=== PATIENT | female | born 1970 | race American Indian/Alaskan Native ===

== ENCOUNTER 2017-05-16 20:28 | Emergency (ER) | payer OTHER ==
[2017-05-16 20:37] VITALS: BP 117/83
[2017-05-16 20:48] LABS: Basophils % (Auto) 0.9 % (0.0-1.8); Mean Corpuscular HGB Conc 32 % (30-34); Mean Corpuscular Hemoglobin 29 pg (28-32); Mean Corpuscular Volume 89 fl (79-97); Platelet Count 271 K/mm3 (140-440); Red Cell Distribution Width 14.3 % (13.2-15.2); White Blood Count 7.1 K/mm3 (4.5-11.0)
[2017-05-16 20:59] LABS: INR 0.95 (0.87-1.13)
[2017-05-16 21:00] LABS: Partial Thromboplastin Time 26.8 Sec. (24.2-36.6)
[2017-05-16 21:09] LABS: Anion Gap 11 mmol/L; BUN/Creatinine Ratio 15.55; Blood Urea Nitrogen 14 mg/dL (7-17); Carbon Dioxide 29 mmol/L (22-30); Chloride 104.3 mmol/L (98-107); Glucose 94 mg/dL (65-100); Potassium 3.8 mmol/L (3.6-5.0); Sodium 140 mmol/L (137-145)
--- NOTE | 2017-05-17 17:06 | ED Elopement Review ---
ED Pt Elopement review - Results review Lab results: Laboratory Tests 05/16/17 05/16/17 05/16/17 20:38 20:38 20:38 WBC 7.1 RBC 3.50 L Hgb 10.0 L Hct 31.0 MCV 89 MCH 29 MCHC 32 RDW 14.3 Plt Count 271 Lymph % (Auto) 41.7 H Fre[place] % (Auto) 9.3 H Eos % (Auto) 4.0 Baso % (Auto) 0.9 Lymph # 3.0 Freestone # 0.7 Eos # 0.3 Baso # 0.1 Seg Neutrophils % 44.1 Seg Neutrophils # 3.1 PT 13.1 INR 0.95 APTT 26.8 Sodium 140 Potassium 3.8 Chloride 104.3 Carbon Dioxide 29 Anion Gap 11 BUN 14 Creatinine 0.9 Estimated GFR > 60 BUN/Creatinine Ratio 15.55 Glucose 94 Calcium 9.0 Troponin T < 0.010 - Call Back decision Pt Call Back Decision: No action required
== END 2017-05-17 01:00 | disposition left against medical advice (07) ==
LOC: ED 20:28
DX: R07.9 Chest pain, unspecified (principal); Z53.21 Procedure and treatment not carried out due to patient leaving prior to being seen by health care provider
CPT/HCPCS: 36415; 80048; 84484; 85025; 85610; 85730; 93005; 93010